=== PATIENT | male | born 1985 | race Caucasian/White ===

== ENCOUNTER 2016-04-17 06:41 | Emergency (ER) | payer BC, OTHER ==
[2016-04-17] MEDS ORDERED: SODIUM CHLORIDE 0.9% 1,000 ML IV ONE (07:04)
[2016-04-17] MEDS ORDERED: ONDANSETRON 4 MG/2 ML VIAL IVP STA (07:04)
[2016-04-17] MEDS ORDERED: ONDANSETRON 4 MG/2 ML VIAL ONE (07:09)
[2016-04-17] MEDS ORDERED: MAG HYDROX/AL HYDROX/SIMETH 30 ML UDC PO STA (08:00)
[2016-04-17] MEDS ORDERED: PANTOPRAZOLE 40 MG VIAL IVP STA (08:00)
[2016-04-17] MEDS ORDERED: PANTOPRAZOLE 40 MG VIAL ONE (08:17)
[2016-04-17] MEDS ORDERED: MAG HYDROX/AL HYDROX/SIMETH 30 ML UDC ONE (08:17)
== END 2016-04-17 08:29 | disposition home or self-care (01) ==
DX: R10.13 Epigastric pain (principal); Z87.891 Personal history of nicotine dependence; Z87.11 Personal history of peptic ulcer disease
CPT/HCPCS: 36415; 80053; 81003; 83690; 85025; 96374; 96375; 99283; A9270

== ENCOUNTER 2018-01-24 01:34 | Outpatient (CLI) | payer SELFPAY | END 2018-01-24 01:35 | disposition EMS.NT | LOC: EMS 01:34 | PROVIDERS: ATTEND Surgery | DX: Z03.89 Encounter for observation for other suspected diseases and conditions ruled out (principal) ==

== ENCOUNTER 2019-02-11 08:42 | Emergency (ER) | payer OTHER ==
--- NOTE | 2019-02-11 09:05 | ED Physician Documentation ---
PD HPI ABD PAIN - Stated complaint Stated Complaint: ABD PX - Chief complaint Chief Complaint: Abd Pain - History obtained from History obtained from: Patient - History of Present Illness Timing - onset: How many hours ago (8-9), Last night Timing - duration: Hours (8-9) Timing - details: Abrupt onset, Still present Quality: Cramping, Aching, Pain Location: Epigastric, Periumbilical Radiation: No: Lower back, Left flank, Right flank Improved by: No: Meds (tried antacids without improvement) Worsened by: Eating, Moving. No: Breathing, Palpation Associated symptoms: Nausea, Vomiting (once), Loss of appetite. No: Fever, Diarrhea Similar symptoms before: Has not had sx before Recently seen: Not recently seen Review of Systems Constitutional: denies: Fever, Myalgias Nose: denies: Rhinorrhea / runny nose, Congestion Throat: denies: Sore throat Respiratory: denies: Cough GI: reports: Abdominal Pain, Nausea, Vomiting (once), Constipation (mild). denies: Abdominal Swelling, Diarrhea, Bloody / black stool : denies: Dysuria, Frequency Skin: denies: Rash, Lesions Neurologic: reports: Generalized weakness. denies: Focal weakness, Numbness, Near syncope PD PAST MEDICAL HISTORY - Past Medical History Past Medical History: Yes Cardiovascular: None Respiratory: None Neuro: None Endocrine/Autoimmune: None GI: Ulcers - Past Surgical History Past Surgical History: No - Present Medications Home Medications: Ambulatory Orders Medication Instructions Recorded Confirmed Famotidine 20 mg PO DAILY #20 tablet 02/11/19 Hydrocodone/Acetaminophen [Dryden 1 each PO Q6H PRN #15 tablet 02/11/19 5-325 Tablet] Ondansetron Odt [Zofran] 4 mg TL Q6H PRN #10 tablet 02/11/19 - Allergies Allergies/Adverse Reactions: Allergies Allergy/AdvReac Type Severity Reaction Status Date / Time No Known Drug Allergies Allergy Verified 02/11/19 08:49 - Social History Does the pt smoke?: No Smoking Status: Never smoker Does the pt drink ETOH?: No Does the pt have substance abuse?: No - Immunizations Immunizations are current?: Yes - POLST Patient has POLST: No PD ED PE NORMAL - Vitals Vital signs reviewed: Yes - General General: Alert and oriented X 3, Well developed/nourished, Other (appears uncomfortable) - HEENT HEENT: Moist mucous membranes, Pharynx benign - Neck Neck: Supple, no meningeal sign, No adenopathy - Cardiac Cardiac: RRR, No murmur - Respiratory Respiratory: Clear bilaterally - Abdomen Abdomen: Soft, Non distended, No organomegaly, Other (Tenderness in the area above the umbilicus into the epigastric area. There is some tenderness to the right upper quadrant as well. No focal tenderness at McBurney's point. The lower abdomen is not tender. There is no percussion or rebound tenderness. Bowel sounds are present and hypoactive. No umbilical hernias) - Male Male : Deferred - Rectal Rectal: Deferred - Back Back: No CVA TTP - Derm Derm: Normal color, Warm and dry - Extremities Extremities: No deformity, No tenderness to palpate, Normal ROM s pain, No edema, No calf tenderness / cord - Neuro Neuro: Alert and oriented X 3, No motor deficit, Normal speech Results - Vitals Vitals: Vital Signs - 24 hr 02/11/19 02/11/19 02/11/19 08:47 09:40 09:50 Temperature 35.9 C L 36.7 C Heart Rate 64 63 Respiratory 22 17 Rate Blood Pressure 145/74 H 130/77 O2 Saturation 100 93 88 L 02/11/19 02/11/19 02/11/19 09:55 11:00 12:16 Temperature Heart Rate 57 L 60 78 Respiratory 18 18 16 Rate Blood Pressure 130/77 125/76 124/84 H O2 Saturation 98 96 96 Oxygen O2 Source Room air - Labs Labs: Laboratory Tests 02/11/19 02/11/19 02/11/19 09:05 09:05 09:30 WBC 19.6 H RBC 5.20 Hgb 15.8 Hct 45.1 MCV 86.7 MCH 30.4 MCHC 35.0 RDW 11.6 L Plt Count 393 MPV 10.0 Neut # (Auto) 18.0 H Lymph # (Auto) 0.9 L [place] # (Auto) 0.6 Eos # (Auto) 0.0 Baso # (Auto) 0.0 Absolute Nucleated RBC 0.00 Nucleated RBC % 0.0 Sodium 134 L Potassium 3.6 Chloride 98 L Carbon Dioxide 23 Anion Gap 13.0 BUN 10 Creatinine 1.0 Estimated GFR (MDRD) 86 L Glucose 139 H Calcium 9.9 Total Bilirubin 1.1 H AST 24 ALT 27 Alkaline Phosphatase 76 Total Protein 7.9 Albumin 4.6 Globulin 3.3 Albumin/Globulin Ratio 1.4 Lipase 33 Urine Color YELLOW Urine Clarity CLEAR Urine pH 8.5 H Ur Specific [place] 1.020 Urine Protein NEGATIVE Urine Glucose (UA) NEGATIVE Urine Ketones 40 H Urine Occult Blood NEGATIVE Urine Nitrite NEGATIVE Urine Bilirubin NEGATIVE Urine Urobilinogen 0.2 (NORMAL) Ur Leukocyte Esterase NEGATIVE Ur Microscopic Review NOT INDICATED Urine Culture Comments NOT INDICATED - Rads (name of study) abd/pelvic CT Radiology: Prelim report reviewed, See rad report PD MEDICAL DECISION MAKING - ED course Complexity details: reviewed results, re-evaluated patient, considered differential (Not clear etiology of his pain. He had some nausea with an episode of vomiting and no diarrhea so not clearly a stomach flu. He is not tender particularly in the gallbladder or appendix area. Consider some diverticulitis with pain in mid abdomen. Will get lab tests initially. Consider possible CT scan.), d/w patient Departure - Departure Disposition: 01 Home, Self Care Clinical Impression: Abdominal pain Qualifiers: Abdominal location: upper abdomen, unspecified Qualified Code(s): R10.10 - Upper abdominal pain, unspecified Condition: Stable Record reviewed to determine appropriate education?: Yes Instructions: ED Abdominal Pain Unkn Cause Follow-Up: Svitlana Odonnell MD [Primary Care Provider] - Prescriptions: Famotidine 20 mg PO DAILY #20 tablet Hydrocodone/Acetaminophen [Dryden 5-325 Tablet] 1 each PO Q6H PRN #15 tablet PRN Reason: Pain Ondansetron Odt [Zofran] 4 mg TL Q6H PRN #10 tablet PRN Reason: Nausea / Vomiting Comments: The cause of your pain is not clear at this time. There may be a viral type illness and last for a day or 2. Use ondansetron if needed for nausea and Tylenol or ibuprofen if needed for pains. Add hydrocodone if needed for worse pain. Stay well-hydrated. [place] food only for a day. If this is a stomach irritation, it would be good to use an acid reducing medicine such as famotidine for a couple of weeks. Recheck if not improved and resolved over the next 1 to 2 days return sooner if worsening pain, fevers, blood in your stool or vomit, or other concerns. Discharge Date/Time: 02/11/19 12:20
[2019-02-11] MEDS ORDERED: HYDROmorphone 1 MG/ML CARPUJECT IVP STA (09:10)
[2019-02-11] MEDS ORDERED: ONDANSETRON 4 MG/2 ML VIAL IVP STA ×2 (09:10→09:58)
[2019-02-11] MEDS ORDERED: SODIUM CHLORIDE 0.9% 1,000 ML IV STA (09:10)
[2019-02-11] MEDS ORDERED: KETOROLAC 15 MG/ML VIAL IVP STA (09:10)
[2019-02-11] MEDS ORDERED: FAMOTIDINE 20 MG/2 ML VIAL IVP STA (09:11)
[2019-02-11] MEDS ORDERED: LIDOCAINE VISCOUS 2% 15 ML UDC MM STA (09:11)
[2019-02-11] MEDS ORDERED: MAG HYDROX/AL HYDROX/SIMETH 30 ML UDC PO STA (09:11)
[2019-02-11 09:23] LABS: BASOPHILS % (AUTO) 0.2 %; HGB - HEMOGLOBIN 15.8 g/dL (14.0-18.0); LYMPHOCYTES # (AUTO) 0.9 10^3/uL (1.5-3.5); LYMPHOCYTES % (AUTO) 4.7 %; MEAN CORPUSCULAR HEMOGLOBIN 30.4 pg (27.0-31.0); MEAN CORPUSCULAR VOLUME 86.7 fL (80.0-94.0); MONOCYTES # (AUTO) 0.6 10^3/uL (0.0-1.0); MONOCYTES % (AUTO) 2.8 %; NEUTROPHILS % (AUTO) 91.7 %; PLT - PLATELET COUNT 393 10^3/uL (130-450); RED CELL DISTRIBUTION WIDTH 11.6 % (12.0-15.0); WHITE BLOOD COUNT 19.6 x10^3/uL (4.8-10.8)
[2019-02-11 09:35] LABS: ALBUMIN 4.6 g/dL (3.2-5.5); ALBUMIN/GLOBULIN RATIO 1.4 (1.0-2.2); BILIRUBIN,TOTAL 1.1 mg/dL (0.2-1.0); CALCIUM 9.9 mg/dL (8.5-10.3); TOTAL PROTEIN 7.9 g/dL (6.7-8.2)
[2019-02-11 09:39] LABS: BILIRUBIN,URINE NEGATIVE (NEGATIVE); GLUCOSE, URINE (UA) NEGATIVE (NEGATIVE); KETONES,URINE (UA) 40 mg/dL (NEGATIVE); LEUKOCYTE ESTERASE, URINE NEGATIVE (NEGATIVE); NITRITE,URINE NEGATIVE (NEGATIVE); OCCULT BLOOD,URINE NEGATIVE (NEGATIVE); PH,URINE 8.5 PH (5.0-7.5); PROTEIN,URINE NEGATIVE (NEGATIVE); UROBILINOGEN,URINE 0.2 (NORMAL) E.U./dL (NORMAL)
[2019-02-11 09:42] LABS: CLARITY,URINE CLEAR (CLEAR)
[2019-02-11] MEDS ORDERED: IOVERSOL 320 100 ML VIAL IVP ONE ×2 (10:05→10:24)
[2019-02-11] MEDS: HYDROmorphone 1 MG/ML CARPUJECT IVP STA ×2 (10:07→10:27)
--- NOTE | 2019-02-11 10:41 | CT Report ---
Reason: upper abd pain and vomiting Procedure Date: 02/11/2019 Accession Number: [id number] / [id number] Procedure: CT - Abdomen/Pelvis W CPT Code: Final Report FULL RESULT: EXAM: CT ABDOMEN AND PELVIS EXAM DATE: 02/11/2019 10:16 AM. CLINICAL HISTORY: Upper abd pain and vomiting. COMPARISONS: None. TECHNIQUE: Routine helical CT imaging was performed through the abdomen and pelvis. IV contrast: OPTI 320 100ML. Enteric contrast: No. Reconstructions: Coronal and sagittal. In accordance with CT protocol optimization, one or more of the following dose reduction techniques were utilized for this exam: automated exposure control, adjustment of mA and/or KV based on patient size, or use of iterative reconstructive technique. FINDINGS: Lung Bases: Unremarkable. Liver: Normal. No masses. Gallbladder/Bile Ducts: Unremarkable. Spleen: Normal. Pancreas: Normal. Adrenal Glands: Normal. Kidneys: Normal. No masses or hydronephrosis. Peritoneal Cavity/Bowel: Normal. No free fluid, free air or adenopathy. No masses or acute inflammatory process. The appendix is well visualized and normal. Pelvic Organs: Normal. The bladder and visualized pelvic organs are within normal limits. Vasculature: Approximately 50% stenosis in the proximal aspect of the SMA. Bones: No significant abnormality. Other: None. IMPRESSION: 1. No bowel obstruction or inflammatory process associated with the bowel. 2. 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 3. The appendix images normally. No free air or fluid in the abdomen or pelvis. RADIA
[2019-02-11] MEDS ORDERED: ACETAMINOPHEN 1,000 MG/100 ML 100 ML IV STA (11:18)
[2019-02-11 12:16] VITALS: BP 124/84
== END 2019-02-11 12:20 | disposition home or self-care (01) ==
LOC: ED 08:42
DX: R10.10 Upper abdominal pain, unspecified (principal)
CPT/HCPCS: 36415; 74177; 80053; 81003; 83690; 85025; 96361; 96374; 96376; 99284; A9270; J1170; Q9967; 81001; 87086

== ENCOUNTER 2020-03-23 07:56 | Outpatient (CLI) | payer OTHER | END 2020-03-23 07:57 | disposition home or self-care (01) | LOC: COV 07:56 | PROVIDERS: ATTEND Family Medicine | DX: U07.1 COVID-19 (principal) ==

== ENCOUNTER 2020-04-07 13:05 | Emergency (ER) | payer OTHER ==
[2020-04-07] MEDS ORDERED: ONDANSETRON 4 MG/2 ML VIAL IVP STA (13:46)
[2020-04-07 14:08] LABS: BASOPHILS % (AUTO) 0.4 %; EOSINOPHILS # (AUTO) 0.1 10^3/uL (0.0-0.7); EOSINOPHILS % (AUTO) 0.6 %; HGB - HEMOGLOBIN 15.1 g/dL (14.0-18.0); LYMPHOCYTES # (AUTO) 0.8 10^3/uL (1.5-3.5); LYMPHOCYTES % (AUTO) 7.6 %; MEAN CORPUSCULAR HEMOGLOBIN 31.9 pg (27.0-31.0); MEAN CORPUSCULAR HGB CONC 34.3 g/dL (32.0-36.0); MEAN CORPUSCULAR VOLUME 92.8 fL (80.0-94.0); MEAN PLATELET VOLUME 9.8 fL (7.4-11.4); MONOCYTES # (AUTO) 0.7 10^3/uL (0.0-1.0); MONOCYTES % (AUTO) 6.3 %; NEUTROPHILS % (AUTO) 84.8 %; PLT - PLATELET COUNT 287 10^3/uL (130-450); RED BLOOD COUNT 4.74 10^6/uL (4.70-6.10); WHITE BLOOD COUNT 10.6 x10^3/uL (4.8-10.8)
[2020-04-07 14:22] LABS: GLUCOSE, URINE (UA) NEGATIVE (NEGATIVE); KETONES,URINE (UA) NEGATIVE (NEGATIVE); LEUKOCYTE ESTERASE, URINE TRACE (NEGATIVE); NITRITE,URINE NEGATIVE (NEGATIVE); OCCULT BLOOD,URINE NEGATIVE (NEGATIVE); PROTEIN,URINE NEGATIVE (NEGATIVE); UROBILINOGEN,URINE 2 E.U./dL (NORMAL)
[2020-04-07 14:26] LABS: BILIRUBIN,URINE MODERATE (NEGATIVE); CLARITY,URINE CLEAR (CLEAR); ICTOTEST,URINE POSITIVE
[2020-04-07 14:27] LABS: ALBUMIN 4.4 g/dL (3.2-5.5); ALBUMIN/GLOBULIN RATIO 1.4 (1.0-2.2); BILIRUBIN,TOTAL 4.6 mg/dL (0.2-1.0); CALCIUM 9.5 mg/dL (8.5-10.3); CREATININE 0.9 mg/dL (0.6-1.2); TOTAL PROTEIN 7.5 g/dL (6.7-8.2)
[2020-04-07 14:39] LABS: BACTERIA,URINE None Seen /HPF (None Seen); RBC,URINE 0-5 /HPF (0-5); SQUAMOUS EPITHELIAL CELL,UR RARE Squamous (<= Few)
[2020-04-07] MEDS ORDERED: MORPHINE 2 MG/ML CARPUJECT IVP STA ×2 (14:42→16:32)
[2020-04-07] MEDS ORDERED: SODIUM CHLORIDE 0.9% 1,000 ML IV STA (15:07)
--- NOTE | 2020-04-07 15:10 | ED Physician Documentation ---
History of Present Illness - Stated complaint Stated Complaint: ABD PX - Chief complaint Chief Complaint: Abd Pain - Additonal information Additional information: 34-year-old male presents to the emergency department with acute on chronic epi gastric pain. He reports that over the last week this pain has been worse than normal. He did undergo an EGD a few months ago in [place] and there were no worrisome findings seen. A biopsy was completed and it did show mild inflammation. He takes omeprazole daily and typically this works to control the pain however over the last week it has not. No fevers. Some nausea no vomiting. No diarrhea. Patient appears very uncomfortable. Review of Systems Constitutional: denies: Fever, Chills Ears: reports: Reviewed and negative Nose: reports: Reviewed and negative Throat: reports: Reviewed and negative Cardiac: reports: Reviewed and negative Respiratory: reports: Reviewed and negative GI: reports: Abdominal Pain, Nausea. denies: Vomiting, Constipation, Diarrhea, Hematemesis, Bloody / black stool : reports: Reviewed and negative Skin: reports: Reviewed and negative PD PAST MEDICAL HISTORY - Past Medical History Cardiovascular: None Respiratory: None Neuro: None Endocrine/Autoimmune: None GI: Ulcers - Past Surgical History Past Surgical History: No - Present Medications Home Medications: Ambulatory Orders Medication Instructions Recorded Confirmed No Known Home Medications 04/07/20 04/07/20 Omeprazole Magnesium [Prilosec] 10 mg PO 04/07/20 - Allergies Allergies/Adverse Reactions: Allergies Allergy/AdvReac Type Severity Reaction Status Date / Time No Known Drug Allergies Allergy Verified 02/11/19 08:49 - Social History Does the pt smoke?: No Smoking Status: Never smoker Does the pt drink ETOH?: No Does the pt have substance abuse?: No - Immunizations Immunizations are current?: Yes - POLST Patient has POLST: No PD ED PE NORMAL - General General: Alert and oriented X 3, No acute distress, Well developed/nourished - Neck Neck: Supple, no meningeal sign, No adenopathy - Cardiac Cardiac: RRR, No murmur - Respiratory Respiratory: No respiratory distress - Abdomen Abdomen: Normal bowel sounds, Soft, Non distended. No: Non tender (Epigastric tenderness without guarding or rebound. Negative Posada's negative McBurney's) Results - Vitals Vitals: Vital Signs - 24 hr 04/07/20 04/07/2004/07/21 13:22 14:09 14:50 Temperature 36.4 C L Heart Rate 76 84 63 Respiratory 18 16 16 Rate Blood Pressure 136/81 H 128/84 H 126/82 H O2 Saturation 98 99 100 04/07/20 04/07/20 04/07/20 16:11 16:33 17:39 Temperature 37.1 C Heart Rate 70 83 70 Respiratory 16 18 16 Rate Blood Pressure 109/86 H 98/56 L 122/72 O2 Saturation 99 99 99 Oxygen O2 Source Room air - Labs Labs: Laboratory Tests 04/07/20 04/07/20 04/07/20 14:02 14:02 14:11 WBC 10.6 RBC 4.74 Hgb 15.1 Hct 44.0 MCV 92.8 MCH 31.9 H MCHC 34.3 RDW 12.0 Plt Count 287 MPV 9.8 Neut # (Auto) 9.0 H Lymph # (Auto) 0.8 L [place] # (Auto) 0.7 Eos # (Auto) 0.1 Baso # (Auto) 0.0 Absolute Nucleated RBC 0.00 Nucleated RBC % 0.0 Sodium 139 Potassium 4.0 Chloride 102 Carbon Dioxide 26 Anion Gap 11.0 BUN 12 Creatinine 0.9 Estimated GFR (MDRD) 97 Glucose 113 H Calcium 9.5 Total Bilirubin 4.6 H AST 555 H ALT 824 H Alkaline Phosphatase 116 Total Protein 7.5 Albumin 4.4 Globulin 3.1 Albumin/Globulin Ratio 1.4 Lipase 35 Urine Color DARK YELLOW Urine Clarity CLEAR Urine pH 7.0 Ur Specific [place] 1.020 Urine Protein NEGATIVE Urine Glucose (UA) NEGATIVE Urine Ketones NEGATIVE Urine Occult Blood NEGATIVE Urine Nitrite NEGATIVE Urine Bilirubin MODERATE H Urine Urobilinogen 2 H Ur Leukocyte Esterase TRACE H Urine RBC 0-5 Urine WBC 4-5 Ur Squamous Epith Cells RARE Squamous Urine Bacteria None Seen Ur Microscopic Review INDICATED Urine Culture Comments INDICATED - Rads (name of study) abd US Radiology: Final report received (Cholelithiasis with borderline gallbladder wall thickening just above the upper limits of normal. The distal common duct is mildly dilated. The appearance is nonspecific and could represent evidence of acute cholecystitis. Distal common duct calculus is not ruled out) PD MEDICAL DECISION MAKING - ED course Complexity details: reviewed results, re-evaluated patient, considered differential, d/w patient ED course: 34-year-old male presents to the emergency department with worsening epigastric pain that began about 1 week ago. He does have a history of gastritis and did have an EGD completed a number of months ago in [place]. He reports that typically omeprazole controls his pain but over the last week the omeprazole has stopped working. On exam he appeared very uncomfortable and only epigastric tenderness was elicited. There is no tenderness in the right upper quadrant. Negative Posada's. Screening labs reveal an obstructive process within the liver with an elevated bilirubin of 4.8 and AST ALT. We will proceed with an ultrasound to evaluate for biliary colic. 1630: I have discussed with our on-call surgeon Dr. Luisito Jauregui the ultrasound findings concerning for acute cholecystitis with possibility of an obstructing distal common duct stone. He will need an ERCP unfortunately [facility] cannot accommodate this knee. Therefore we will contact other facilities for transfer 1700: I have discussed with GI physician Dr. Hedrick at [facility]. We have discussed the case lab test and imaging findings. He agrees the patient should be transferred for further evaluation. We are awaiting to hear back from the hospitalist on formal acceptance. We did initially contact [facility] for evaluation of this patient however GI physicians that can do an ERCP over the weekend. 1745: I have spoken with Dr. Vivi caruso at [facility]. She graciously accepts the patient in transfer to general [facility] floor. GI physician Dr. Guardado will be consulting. Patient will be transferred via ALS for pain control. Appropriate COBRA paperwork completed. Patient is aware of the impending transfer all questions answered.
--- NOTE | 2020-04-07 16:18 | Ultrasound Report ---
PROCEDURE: Abdomen Limited INDICATIONS: elevated LFT; ? obstructing stone TECHNIQUE: Real-time focused scanning was performed of the abdomen, with image documentation. COMPARISON: Prior CT scanning 02/11/2019 FINDINGS: The echotexture of the liver is normal, and no intrahepatic biliary distention is resident . Quality of visualization of the liver is somewhat limited by overlying bowel gas. The gallbladder wall is mildly thickened at 3.4 mm, and multiple shadowing stones are present within much of the gallbladder lumen, with the common hepatic duct normal in caliber at 4.4 mm. The distal c ommon duct at the pancreas area is mildly prominent at 8 mm. The pancreas itself is normal at the hea d and body but obscured at the pancreatic tail. Right kidney assessment is normal at 12.5 cm craniocaudad length and 1.7 cm in thickness. IMPRESSION: Cholelithiasis with borderline gallbladder wall thickening just above the upper limits of normal. The distal common duct is mildly dilated. The appearance is nonspecific and could represent evidence of early acute cholecystitis or chronic cholecystitis related to gallbladder wall thickening. The presen ce of mild prominence of the distal common duct could indicate a chronic finding, but MR cholangiogra m should be considered for a more definitive assessment of distal common duct calculus. Reviewed by: Derick Mcfarlane MD on 04/07/2020 4:17 PM PST Approved by: Derick Mcfarlane MD on 04/07/2020 4:17 PM PST Station ID: [id number]
[2020-04-07] MEDS ORDERED: cefTRIAXone 2 GM in SODIUM CHLORIDE 0.9% MINIBAG 100 ML IV STA (16:34)
[2020-04-07 17:40] VITALS: BP 122/72
[2020-04-07 20:14] LABS: C. PNEUMONIAE- RESP PCR PANEL NOT DETECTED
== END 2020-04-07 19:01 | disposition short-term general hospital (02) ==
LOC: ED 13:05
DX: K29.70 Gastritis, unspecified, without bleeding (principal); K81.9 Cholecystitis, unspecified; Z20.822 Contact with and (suspected) exposure to COVID-19
CPT/HCPCS: 0202U; 36415; 76705; 80053; 81001; 83690; 85025; 87086; 96365; 96366; 96375; 96376; 99284; 99285; 81003

== ENCOUNTER 2020-04-07 19:03 | Outpatient (CLI) | payer OTHER | END 2020-04-07 19:04 | disposition short-term general hospital (02) | LOC: EMS 19:03 | DX: K29.70 Gastritis, unspecified, without bleeding (principal); K81.9 Cholecystitis, unspecified | CPT/HCPCS: A0425; A0426 ==

== ENCOUNTER 2020-11-07 23:33 | Emergency (ER) | payer OTHER ==
--- NOTE | 2020-11-07 23:59 | ED Physician Documentation ---
PD HPI CHEST PAIN - Stated complaint Stated Complaint: SHARP PX UNDER RT RIB - Chief complaint Chief Complaint: Trauma Ch/Bk - History obtained from History obtained from: Patient - History of Present Illness Timing - onset: Today Timing - onset during: Rest Timing - duration: Hours Timing - details: Gradual onset, Still present Quality: Sharp, Pain Location: Right chest Radiation: No: Jaw, Neck, Back, Abdominal, Left upper extremity, Right upper ext remity Improved by: Rest Worsened by: Inspiration Associated symptoms: No: Shortness of air, Diaphoresis, Nausea, Vomiting, F eeling faint / dizzy, General Weakness, Palpitations, Cough Similar symptoms before: Has not had sx before Recently seen: Clinic - Additional information Additional information: 35-year-old male presents to the emergency department morning with right-sided chest pain with inspiration. Each breath causes a pain to the right side of his chest. Review of Systems Constitutional: denies: Fever Eyes: denies: Decreased vision Ears: denies: Ear pain Nose: denies: Rhinorrhea / runny nose, Congestion Throat: denies: Sore throat Cardiac: reports: Chest pain / pressure. denies: Palpitations Respiratory: denies: Dyspnea, Cough, Wheezing GI: denies: Abdominal Pain, Nausea, Vomiting : denies: Dysuria, Frequency Skin: denies: Rash Musculoskeletal: denies: Neck pain, Back pain, Extremity pain Neurologic: denies: Generalized weakness, Focal weakness, Numbness PD PAST MEDICAL HISTORY - Past Medical History Cardiovascular: None Respiratory: None Neuro: None Endocrine/Autoimmune: None GI: Ulcers - Past Surgical History Past Surgical History: No - Present Medications Home Medications: Ambulatory Orders Medication Instructions Recorded Confirmed No Known Home Medications 04/07/20 04/07/20 Omeprazole Magnesium [Prilosec] 10 mg PO 04/07/20 - Allergies Allergies/Adverse Reactions: Allergies Allergy/AdvReac Type Severity Reaction Status Date / Time No Known Drug Allergies Allergy Verified 11/07/20 23:52 - Social History Does the pt smoke?: No Smoking Status: Never smoker Does the pt drink ETOH?: No Does the pt have substance abuse?: No - Immunizations Immunizations are current?: Yes - POLST Patient has POLST: No PD ED PE NORMAL - Vitals Vital signs reviewed: Yes (normal ) - General General: Alert and oriented X 3, No acute distress, Well developed/nourished - HEENT HEENT: Atraumatic, PERRL, EOMI - Neck Neck: Supple, no meningeal sign, No bony TTP - Cardiac Cardiac: RRR, No murmur - Respiratory Respiratory: No respiratory distress, Other (end inspritory crackles bibasilar R>L) - Abdomen Abdomen: Soft, Non tender - Back Back: No CVA TTP, No spinal TTP - Derm Derm: Normal color, Warm and dry, No rash - Extremities Extremities: No deformity, No edema - Neuro Neuro: Alert and oriented X 3, 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 parapertussis DNA (PCR) NOT DETECTED Nasal Coronavir 229E PCR NOT DETECTED Nasal Coronavir HKU1 PCR NOT DETECTED Nasal Coronavir NL63 PCR NOT DETECTED Nasal Coronavir OC43 PCR NOT DETECTED Nasal Enterovir/Rhinovir PCR NOT DETECTED Nasal Influenza B PCR NOT DETECTED Nasal Influenza A PCR NOT DETECTED Nasal Parainfluen 1 PCR NOT DETECTED Nasal Parainfluen 2 PCR NOT DETECTED Nasal Parainfluen 3 PCR NOT DETECTED Nasal Parainfluen 4 PCR NOT DETECTED Nasal RSV (PCR) NOT DETECTED Nasal B.pertussis DNA PCR NOT DETECTED Nasal C.pneumoniae (PCR) NOT DETECTED Ricki Human Metapneumo PCR NOT DETECTED Nasal M.pneumoniae (PCR) NOT DETECTED Nasal SARS-CoV-2 (PCR) NOT DETECTED - Rads (name of study) chest with ribs Radiology: Prelim report reviewed (Impression: No significant abnormalities.), EMP read indepedently, See rad report PD MEDICAL DECISION MAKING - ED course Complexity details: reviewed results, re-evaluated patient, considered differential, d/w patient ED course: 35-year-old male with pleuritic chest pain without findings of infiltrate on chest x-ray and no specific tenderness to his ribs and no fracture of ribs is administered dexamethasone and Toradol with improvement in his pain. He does not feel he will need pain medication. Departure - Departure Disposition: 01 Home, Self Care Clinical Impression: Pleurisy without effusion Condition: Stable Instructions: ED Chest Pain Pleurisy Follow-Up: [facility] [Provider Group] Discharge Date/Time: 11/08/20 01:33
[2020-11-08] MEDS ORDERED: DEXAMETHASONE 10 MG/ML VIAL PO STA (00:29)
[2020-11-08] MEDS ORDERED: CHERRY SYRUP 10 ML UDC PO ONE (00:29)
[2020-11-08] MEDS ORDERED: KETOROLAC 60 MG/2 ML VIAL IM STA (00:30)
[2020-11-08 01:17] LABS: B. PARAPERTUSSIS- RESP PCR PAN NOT DETECTED; B. PERTUSSIS- RESP PCR PANEL NOT DETECTED; C. PNEUMONIAE- RESP PCR PANEL NOT DETECTED; CORONAVIRUS 229E-RESP PCR NOT DETECTED; CORONAVIRUS HKU1-RESP PCR NOT DETECTED; CORONAVIRUS NL63-RESP PCR NOT DETECTED; CORONAVIRUS OC43-RESP PCR NOT DETECTED; HUMAN METAPNEUMOVIRUS NOT DETECTED; INFLUENZA A- RESP PCR PANEL NOT DETECTED; INFLUENZA B - RESP PCR PANEL NOT DETECTED; M. PNEUMONIAE- RESP PCR PANEL NOT DETECTED; PARAINFLUENZA VIRUS 1 NOT DETECTED; PARAINFLUENZA VIRUS 2 NOT DETECTED; PARAINFLUENZA VIRUS 3 NOT DETECTED; PARAINFLUENZA VIRUS 4 NOT DETECTED; RHINOVIRUS/ENTEROVIRUS NOT DETECTED; RSV- RESP PCR PANEL NOT DETECTED; SARS-CoV-2 -RESP PCR PANEL NOT DETECTED
[2020-11-08 01:33] VITALS: BP 107/72
--- NOTE | 2020-11-08 12:51 | XRAY Report ---
PROCEDURE: Ribs w/PA Chest RT INDICATIONS: right sided chest pain TECHNIQUE: 3 views of the right ribs were acquired, along with a single view chest. COMPARISON: None FINDINGS: Surgical changes and devices: None. Bones and chest wall: No fractures or dislocations. No suspicious bony lesions. Overlying soft tis sues appear unremarkable. Lungs and pleura: No pleural effusions or pneumothorax. Lungs appear clear. Mediastinum: Mediastinal contours appear normal. Heart size is normal. IMPRESSION: No acute pulmonary process. The above findings are concordant with preliminary report. Reviewed by: Sonja Galvan MD on 11/08/2020 12:50 PM PDT Approved by: Sonja Galvan MD on 11/08/2020 12:50 PM PDT Station ID: [id number]
== END 2020-11-08 01:33 | disposition home or self-care (01) ==
LOC: ED 23:33
DX: R09.1 Pleurisy (principal); Z20.822 Contact with and (suspected) exposure to COVID-19
CPT/HCPCS: 0202U; 71101; 96372; 99283; 99284; A9270

== ENCOUNTER 2020-12-19 10:45 | Outpatient (CLI) | payer OTHER ==
--- NOTE | 2020-12-28 02:21 | XRAY Report ---
PROCEDURE: Clavicle LT INDICATIONS: FRACTURE OF LATERAL END OF LEFT CLAVICLE TECHNIQUE: 2 views of the clavicle were acquired. Images became available for review on 12/27/2020 COMPARISON: Chest x-ray 11/08/2020 FINDINGS: Bones: There is a comminuted subacute appearing distal left clavicular fracture. It is minimally disp laced. No suspicious bony lesions. Soft tissues: No suspicious soft tissue calcifications. IMPRESSION: Subacute appearing minimally displaced distal left clavicular fracture. Reviewed by: Sonja Galvan MD on 12/28/2020 1:03 AM PDT Approved by: Sonja Galvan MD on 12/28/2020 1:03 AM PDT Station ID: [id number]
== END 2020-12-19 10:46 | disposition home or self-care (01) ==
LOC: DI.N 10:45
PROVIDERS: ATTEND Physician Assistant
DX: S42.035A Nondisplaced fracture of lateral end of left clavicle, initial encounter for closed fracture (principal)

== ENCOUNTER 2021-01-24 08:00 | Outpatient (CLI) | payer OTHER | END 2021-01-24 23:59 | LOC: LAB 08:00 | PROVIDERS: ATTEND Family Medicine | DX: R52 Pain, unspecified (principal); R68.83 Chills (without fever); Z20.822 Contact with and (suspected) exposure to COVID-19 ==

== ENCOUNTER 2021-03-01 11:23 | Emergency (ER) | payer OTHER ==
[2021-03-01 11:29] VITALS: BP 118/71
--- NOTE | 2021-03-01 11:40 | ED Physician Documentation ---
PD HPI OPHTHO - Stated complaint Stated Complaint: RT SIDE BLURRED VISION - Chief complaint Chief Complaint: Heent - History obtained from History obtained from: Patient - History of Present Illness Timing - onset: How many hours ago (02/25), Today Timing - duration: Hours (2) Timing - details: Abrupt onset (onset while doing light activity. Had not changed lighting. Noted onset blurring vision and halos of lights just right eye. No blackened vision. No headache. Denies rubbing eye, nor any chemical exposures. No prior similar.), Still present Location: Right Quality / character: No: Itching, Burning, Aching Associated symptoms: Decreased vision (blurry at distance (not as bad up close) and lights appear to have halos or prisms of light around them. No wiggles nor scotomata.). No: Redness, Swelling, FB sensation, Loss of vision Contributing factors: No: Recent URI, FB, Wears contacts Similar symptoms before: Has not had sx before Recently seen: Not recently seen Review of Systems Constitutional: denies: Fever, Chills Eyes: reports: Decreased vision (just right eye). denies: Loss of vision, Photophobia, Discharge, Irritation Nose: denies: Rhinorrhea / runny nose, Congestion, Sinus pressure / pain Throat: denies: Sore throat Respiratory: denies: Cough GI: denies: Nausea, Vomiting Neurologic: denies: Focal weakness, Numbness, Headache PD PAST MEDICAL HISTORY - Past Medical History Cardiovascular: None Respiratory: None Neuro: None Endocrine/Autoimmune: None GI: Ulcers - Past Surgical History Past Surgical History: No - Present Medications Home Medications: Ambulatory Orders Medication Instructions Recorded Confirmed No Known Home Medications 04/07/20 04/07/20 Omeprazole Magnesium [Prilosec] 10 mg PO 04/07/20 - Allergies Allergies/Adverse Reactions: Allergies Allergy/AdvReac Type Severity Reaction Status Date / Time No Known Drug Allergies Allergy Verified 03/01/21 11:25 - Social History Does the pt smoke?: No Smoking Status: Never smoker Does the pt drink ETOH?: No Does the pt have substance abuse?: No - Immunizations Immunizations are current?: Yes - POLST Patient has POLST: No PD ED PE NORMAL - Vitals Vital signs reviewed: Yes - General General: Alert and oriented X 3, No acute distress, Well developed/nourished - HEENT HEENT: PERRL, EOMI, Ears normal, Pharynx benign - Neck Neck: Supple, no meningeal sign, No adenopathy, No bruit PD ED PE EXPANDED - Eyes Eyes: PERRL, EOMI, Anterior chambers clear, Normal fundi, Other (IOP by [employer] is 14.). No: Injected conj/sclera, Exudate, Fluorescein uptake, Papilledema, Retinal hemorrhage Results - Vitals Vitals: Vital Signs - 24 hr 03/01/21 11:26 Temperature 36.5 C Heart Rate 65 Respiratory 16 Rate Blood Pressure 118/71 O2 Saturation 98 Oxygen O2 Source Room air PD MEDICAL DECISION MAKING - ED course Complexity details: considered differential (consider retinal process but retinal appears okay. Vitreous hemorrhage but chambers are clear and not turbid, acute glaucoma but IOP appears normal, ocular migraine but has not had migraines and no headache as yet. ), d/w patient, d/w applications development consultant (texted Dr. Estephanie Genao, who felt patient is okay for follow up tomorrow and can see patient prior to 10 am. ) Departure - Departure Disposition: 01 Home, Self Care Clinical Impression: Blurred vision, right eye Condition: Stable Record reviewed to determine appropriate education?: Yes Instructions: ED Blurred Vision Follow-Up: Cornelio Genao MD [Provider Admit Priv/Credential] - Comments: Your eye appears normal on exam here in the ER (surface, pressure, chambers, and retina). Considerations would be a fluctuation in blood flow through the eye (ocular migraine) or potentially some pressure in the eye socket such as sinus congestion or such. Your retina appears normal to me. Consideration could be an early abnormality of the retina (but is not detached). At this point I would suggest resting today. I talked with Dr. Cornelio Genao who is an online editor on staff with our hospital. He felt a follow-up tomorrow was timely and appropriate. He said to call today his office today after 1 PM to make an appointment for before 10 AM tomorrow. Return to the ER if generally worsening symptoms or you develop other problems such as loss of vision, eye pain, other concerns. Forms: Activity restrictions Discharge Date/Time: 03/01/21 12:38
[2021-03-01] MEDS ORDERED: CETIRIZINE 10 MG TABLET PO STA (12:27)
== END 2021-03-01 12:38 | disposition home or self-care (01) ==
LOC: ED 11:23
DX: H53.8 Other visual disturbances (principal)
CPT/HCPCS: 99282; A9270

== ENCOUNTER 2021-06-06 07:23 | Outpatient (CLI) | payer OTHER ==
[2021-06-06 11:54] LABS: BASOPHILS % (AUTO) 0.4 %; EOSINOPHILS # (AUTO) 0.1 10^3/uL (0.0-0.7); HCT - HEMATOCRIT 42.9 % (42.0-52.0); HGB - HEMOGLOBIN 14.8 g/dL (14.0-18.0); LYMPHOCYTES # (AUTO) 1.3 10^3/uL (1.5-3.5); LYMPHOCYTES % (AUTO) 24.2 %; MEAN CORPUSCULAR HEMOGLOBIN 31.2 pg (27.0-31.0); MEAN CORPUSCULAR HGB CONC 34.5 g/dL (32.0-36.0); MEAN CORPUSCULAR VOLUME 90.5 fL (80.0-94.0); MEAN PLATELET VOLUME 10.6 fL (7.4-11.4); MONOCYTES # (AUTO) 0.5 10^3/uL (0.0-1.0); MONOCYTES % (AUTO) 9.4 %; NEUTROPHILS # (AUTO) 3.5 10^3/uL (1.5-6.6); NEUTROPHILS % (AUTO) 63.8 %; PLT - PLATELET COUNT 301 10^3/uL (130-450); RED BLOOD COUNT 4.74 10^6/uL (4.70-6.10); RED CELL DISTRIBUTION WIDTH 11.9 % (12.0-15.0); WHITE BLOOD COUNT 5.5 x10^3/uL (4.8-10.8)
[2021-06-06 12:40] LABS: ALBUMIN 4.3 g/dL (3.2-5.5); ALBUMIN/GLOBULIN RATIO 1.5 (1.0-2.2); ALKALINE PHOSPHATASE 66 IU/L (42-121); ALT ALANINE AMINOTRANSFERASE 19 IU/L (10-60); AST ASPARTATE AMINOTRANSFERASE 17 IU/L (10-42); BILIRUBIN,TOTAL 0.9 mg/dL (0.2-1.0); BUN - BLOOD UREA NITROGEN 14 mg/dL (6-20); CALCIUM 9.2 mg/dL (8.5-10.3); CARBON DIOXIDE - CO2 25 mmol/L (21-32); CHLORIDE 103 mmol/L (101-111); CHOLESTEROL 136 mg/dL; GFR - MDRD 85 (>89); GLUCOSE 94 mg/dL (70-100); HDL CHOLESTEROL 45 mg/dL; LDL CHOLESTEROL,CALCULATED 77 mg/dL; LDL/HDL RATIO 1.7 (<3.6); POTASSIUM 4.3 mmol/L (3.5-5.0); SODIUM 135 mmol/L (135-145); TOTAL PROTEIN 7.1 g/dL (6.7-8.2); TRIGLYCERIDES 70 mg/dL; VLDL CHOLESTEROL 14 mg/dL
[2021-06-06 12:51] LABS: THYROID STIMULATING HORMONE 1.3 uIU/mL (0.34-5.60)
== END 2021-06-06 07:24 | disposition home or self-care (01) ==
LOC: LAB.N 07:23
PROVIDERS: ATTEND Nurse Practitioner Family
DX: Z00.00 Encounter for general adult medical examination without abnormal findings (principal); Z13.21 Encounter for screening for nutritional disorder
CPT/HCPCS: 36415; 80053; 80061; 81599; 82306; 83036; 83721; 84443; 85025

== ENCOUNTER 2022-09-16 15:15 | Outpatient (CLI) | payer OTHER ==
[2022-09-16 18:14] LABS: BASOPHILS % (AUTO) 0.3 %; EOSINOPHILS # (AUTO) 0.2 10^3/uL (0.0-0.7); EOSINOPHILS % (AUTO) 2.5 %; HCT - HEMATOCRIT 42.2 % (42.0-52.0); LYMPHOCYTES # (AUTO) 1.9 10^3/uL (1.5-3.5); LYMPHOCYTES % (AUTO) 26.1 %; MEAN CORPUSCULAR HEMOGLOBIN 31.1 pg (27.0-31.0); MEAN CORPUSCULAR HGB CONC 33.2 g/dL (32.0-36.0); MEAN CORPUSCULAR VOLUME 93.8 fL (80.0-94.0); MEAN PLATELET VOLUME 10.4 fL (7.4-11.4); MONOCYTES # (AUTO) 0.6 10^3/uL (0.0-1.0); MONOCYTES % (AUTO) 8.9 %; NEUTROPHILS # (AUTO) 4.5 10^3/uL (1.5-6.6); NEUTROPHILS % (AUTO) 61.9 %; PLT - PLATELET COUNT 293 10^3/uL (130-450); RED CELL DISTRIBUTION WIDTH 11.9 % (12.0-15.0); WHITE BLOOD COUNT 7.2 x10^3/uL (4.8-10.8)
[2022-09-16 18:31] LABS: ALBUMIN 4.4 g/dL (3.2-5.5); ALBUMIN/GLOBULIN RATIO 1.8 (1.0-2.2); BILIRUBIN,TOTAL 0.4 mg/dL (0.2-1.0); CALCIUM 9.5 mg/dL (8.5-10.3); POTASSIUM 4.3 mmol/L (3.5-4.5); TOTAL PROTEIN 6.9 g/dL (6.4-8.9)
== END 2022-09-16 15:16 | disposition home or self-care (01) ==
LOC: LAB.N 15:15
PROVIDERS: ATTEND Nurse Practitioner
DX: R06.02 Shortness of breath (principal)
CPT/HCPCS: 36415; 80053; 85025

== ENCOUNTER 2022-09-16 15:51 | Outpatient (CLI) | payer OTHER ==
--- NOTE | 2022-09-16 16:17 | XRAY Report ---
PROCEDURE: Chest 2 View X-Ray INDICATIONS: SHORTNESS OF BREATH TECHNIQUE: 2 views of the chest were acquired. COMPARISON: Chest x-ray 11/08/2020 FINDINGS: Surgical changes and devices: None. Lungs and pleura: No pleural effusions or pneumothorax. Lungs are clear. Mediastinum: Mediastinal contours appear normal. Heart size is normal. Bones and chest wall: No suspicious bony lesions. Overlying soft tissues appear unremarkable. IMPRESSION: No acute cardiopulmonary process. Reviewed by: Sonja Galvan MD on 09/16/2022 4:15 PM PDT Approved by: Sonja Galvan MD on 09/16/2022 4:15 PM PDT Station ID: [id number]
== END 2022-09-16 15:52 | disposition home or self-care (01) ==
LOC: DI 15:51
PROVIDERS: ATTEND Nurse Practitioner
DX: R06.02 Shortness of breath (principal)
CPT/HCPCS: 36415; 80053; 85025